=== PATIENT | male | born 1990 | race American Indian/Alaskan Native ===

== ENCOUNTER 2018-10-18 10:44 | Emergency (ER) | payer OTHER ==
[2018-10-18] MEDS ORDERED: Lidocaine 2% 20 ML MDV INJECT ONE (10:45)
[2018-10-18] MEDS ORDERED: Diphtheria,Pertussis(Acell),Tetanus Vaccine 0.5 ML SDV IM ONE (10:53)
[2018-10-18] MEDS ORDERED: cefTRIAXone 1 GM Vial IM STA (10:54)
--- NOTE | 2018-10-18 10:57 | EDM.PDOC ---
ED HPI GENERAL MEDICAL PROBLEM - General Chief Complaint: Upper Extremity Injury/Pain Stated Complaint: LEFT MIDDLE FINGER CUT Time Seen by Provider: 10/18/18 10:44 Source of Information: Reports: Patient History Limitations: Reports: No Limitations - History of Present Illness INITIAL COMMENTS - FREE TEXT/NARRATIVE: 28 years old w tessie came to the ed after he cut himself into his left middle finger with a supervisor mattress and boxsprings by accident. Wound was bleeding, not pulsating. No loss of function. No N/V/D or any other acute medical issues. BP 138/78 RR 18 Pulse ox 100% on RA, Temp 36.8 pulse 71 Onset Date: 10/18/18 Onset Time: 08:00 Duration: Hour(s): Location: Reports: Upper Extremity, Left (3rd finger ) Quality: Reports: Ache, Dull Severity: Mild Improves with: Reports: Rest Worsens with: Reports: Movement Context: Reports: Trauma Associated Symptoms: Reports: No Other Symptoms - Related Data Allergies Allergy/AdvReac Type Severity Reaction Status Date / Time No Known Allergies Allergy Verified 10/18/18 11:01 Home Meds: Home Meds Amoxicillin/Potassium Clav [Augmentin 875-125 Tablet] 1 each PO BID #20 tablet 10/18/18 [Rx] Review of Systems - Review of Systems Review Of Systems: See Below Constitutional: Reports: No Symptoms Eyes: Reports: No Symptoms Ears: Reports: No Symptoms Nose: Reports: No Symptoms Mouth/Throat: Reports: No Symptoms Respiratory: Reports: No Symptoms Cardiovascular: Reports: No Symptoms GI/Abdominal: Reports: No Symptoms Genitourinary: Reports: No Symptoms Musculoskeletal: Reports: No Symptoms Skin: Reports: Wound (left 3rd finger distal Phalanx) Neurological: Reports: No Symptoms Psychiatric: Reports: No Symptoms ED EXAM, GENERAL - Physical Exam Exam: See Below Exam Limited By: No Limitations General Appearance: Alert, WD/WN, Mild Distress Eye Exam: Bilateral Eye: Normal Inspection Ears: Normal External Exam Ear Exam: Bilateral Ear: Auricle Normal Nose: Normal Inspection, Normal Mucosa, No Blood Throat/Mouth: Normal Inspection, Normal Lips, Normal Teeth, Normal Gums, Normal Voice, No Airway Compromise Head: Atraumatic, Normocephalic Neck: Normal Inspection, Supple, Non-Tender, Full Range of Motion Respiratory/Chest: No Respiratory Distress, Lungs Clear, Normal Breath Sounds, No Accessory Muscle Use, Chest Non-Tender Cardiovascular: Normal Peripheral Pulses, Regular Rate, Rhythm, No Edema, No Gallop, No JVD, No Murmur, No Rub GI/Abdominal: Normal Bowel Sounds, Soft, Non-Tender, No Organomegaly, No Abnormal Bruit, No Mass, Pelvis Stable (Male) Exam: Deferred Rectal (Males) Exam: Deferred Back Exam: Normal Inspection, Full Range of Motion Extremities: Normal Inspection, Normal Range of Motion, Non-Tender, No Pedal Edema, Normal Capillary Refill Neurological: Alert, Oriented, CN II-XII Intact, Normal Cognition, Normal Gait Psychiatric: Normal Affect, Normal Mood Skin Exam: Warm, Dry, Normal Color, No Rash, Other (LAC left finger) Lymphatic: No Adenopathy ED TRAUMA EXTREMITY PROCEDURES - Laceration/Wound Repair Left Digit - 3rd (Middle) Lac/Wound Length In cm: 1.5 Appearance: Stellate, Clean Distal NVT: Neuro & Vascular Intact, No Tendon Injury Anesthetic Type: Local Local Anesthesia - Lidocaine (Xylocaine): 2% Plain Local Anesthetic Volume: 4cc Skin Prep: Chlorhexidine (Hibiciens) Saline Irrigation (cc's): 5 Exploration/Debridement/Repair: Wound Explored, In a Bloodless Field, Explored to Base Tetanus Status Addressed: Yes (updated today) Complications: No Course - Vital Signs Text/Narrative:: 28 years old w tessie came to the ed after he cut himself into his left middle finger with a supervisor mattress and boxsprings by accident. Wound was bleeding, not pulsating. No loss of function. No N/V/D or any other acute medical issues. BP 138/78 RR 18 Pulse ox 100% on RA, Temp 36.8 pulse 71\ PE: WNWD W M with a laceration left middle finger, no FB seen Procedure, please see not above Impression: Left middle finger Tx: TD, Rocephin, Wound repair Reexam: Improved Plan: D/C with instruction Last Recorded V/S: Last Vital Signs Temp 36.9 C 10/18/18 11:55 Pulse 67 10/18/18 11:55 Resp 18 10/18/18 11:55 BP 159/89 H 10/18/18 11:55 Pulse Ox 100 10/18/18 11:55 - Orders/Labs/Meds Orders: Active Orders 24 hr Category Date Time Status Vaccines to be Administered [RC] PER UNIT ROUTINE Care 10/18/18 10:53 Active Meds: Medications Discontinued Medications Generic Name Dose Route Start Last Admin Trade Name Ye WONG Reason Stop Dose Admin Ceftriaxone Sodium 1 gm 10/18/18 10:54 10/18/18 11:38 Rocephin IM 10/18/18 10:55 1 gm ONETIME STA Administration Diphtheria/Tetanus/Acell Pertussis 0.5 ml 10/18/18 10:53 10/18/18 11:39 Adacel IM 10/18/18 10:54 0.5 ml .ONCE ONE Administration Departure - Departure Time of Disposition: 11:28 Disposition: Home, Self-Care 01 Condition: Good Clinical Impression: Laceration - Discharge Information Prescriptions: Amoxicillin/Potassium Clav [Augmentin 875-125 Tablet] 1 each PO BID #20 tablet Referrals: PCP,None [Primary Care Provider] - Forms: ED Department Discharge Additional Instructions: Please apply Neosporine ointment to wound, Augmentin as recommended, wound check in 2 days, suture removal in 7-10 days. Motrin for pain. Please come back if your symptoms get worse acutely. - My Orders Last 24 Hours: My Active Orders 10/18/18 10:53 Vaccines to be Administered [RC] PER UNIT ROUTINE - Assessment/Plan Last 24 Hours: My Active Orders 10/18/18 10:53 Vaccines to be Administered [RC] PER UNIT ROUTINE
== END 2018-10-18 11:55 | disposition home or self-care (01) ==
LOC: FB.ED 10:44
DX: S61.213A Laceration without foreign body of left middle finger without damage to nail, initial encounter (principal); W26.0XXA Contact with knife, initial encounter; Z23 Encounter for immunization
CPT/HCPCS: 12001; 90471; 90715; 96372; 99282; J0696

== ENCOUNTER 2019-02-10 22:32 | Emergency (ER) | payer MEDICAID, OTHER ==
[2019-02-10] MEDS ORDERED: Albuterol 8 GM Inhaler INH ONE (22:33)
[2019-02-10] MEDS ORDERED: Albuterol/Ipratropium 3.0-0.5 MG/3 ML Neb Soln NEB ONE (22:42)
--- NOTE | 2019-02-10 22:47 | EDM.PDOC ---
ED HPI GENERAL MEDICAL PROBLEM - General Stated Complaint: SOB Time Seen by Provider: 02/10/19 22:32 Source of Information: Reports: Patient, Family History Limitations: Reports: No Limitations, Respiratory Distress (cough) - History of Present Illness INITIAL COMMENTS - FREE TEXT/NARRATIVE: 29 y.o.w.m in prev healthy condition, came to the ED with SOB and cough for a few days/weeks, which is getting worse. Pt took Benadryl, which helped him some. Does not smoke or drink. No C/P. No F/C, no N/V or any other acute med issues. BP 101/58 Pulse 111, Temp 36.6 RR 22 Pulse ox 95% on RA Onset: Unknown/Unsure Onset Date: 01/31/19 Onset Time: 10:00 Duration: Day(s):, Week(s):, Getting Worse, Intermittent Location: Reports: Chest Quality: Reports: Ache, Other (sob) Severity: Moderate Improves with: Reports: Medication Worsens with: Reports: Cold Therapy Context: Reports: Sick Contact (?) Associated Symptoms: Reports: Cough - Related Data Allergies Allergy/AdvReac Type Severity Reaction Status Date / Time animal dander Allergy Airway Verified 02/10/19 23:15 Tightness Home Meds: Home Meds Albuterol [Proventil HFA] 2 puff INH Q4H PRN #1 inhaler 02/10/19 [Rx] predniSONE [Prednisone] 20 mg PO DAILY #3 tab.ds.pk 02/10/19 [Rx] Social & Family History - Family History Family Medical History: Noncontributory - Caffeine Use Caffeine Use: Reports: Soda ED ROS GENERAL - Review of Systems Review Of Systems: See Below Constitutional: Reports: No Symptoms HEENT: Reports: No Symptoms Respiratory: Reports: Shortness of Breath, Cough Cardiovascular: Reports: No Symptoms Endocrine: Reports: No Symptoms GI/Abdominal: Reports: No Symptoms : Reports: No Symptoms Musculoskeletal: Reports: No Symptoms Skin: Reports: No Symptoms Neurological: Reports: No Symptoms Psychiatric: Reports: No Symptoms Hematologic/Lymphatic: Reports: No Symptoms Immunologic: Reports: No Symptoms ED EXAM, GENERAL - Physical Exam Exam: See Below Exam Limited By: No Limitations General Appearance: Alert, WD/WN, Moderate Distress Eye Exam: Bilateral Eye: Normal Inspection Ears: Normal External Exam Ear Exam: Bilateral Ear: Auricle Normal Nose: Normal Inspection, Normal Mucosa, No Blood Throat/Mouth: Normal Inspection, Normal Lips, Normal Voice, No Airway Compromise Head: Atraumatic, Normocephalic Neck: Normal Inspection, Supple, Non-Tender, Full Range of Motion Respiratory/Chest: Wheezing (expiratory) Cardiovascular: Normal Peripheral Pulses, Regular Rate, Rhythm, No Edema, No Gallop, No JVD GI/Abdominal: Normal Bowel Sounds, Soft, Non-Tender, No Organomegaly, Pelvis Stable (Male) Exam: Deferred Rectal (Males) Exam: Deferred Back Exam: Normal Inspection, Full Range of Motion Extremities: Normal Inspection, Normal Range of Motion, Non-Tender, No Pedal Edema Neurological: Alert, Oriented, CN II-XII Intact, Normal Cognition, Normal Gait Psychiatric: Normal Affect, Normal Mood Skin Exam: Warm, Dry, Intact, Normal Color, No Rash Lymphatic: No Adenopathy Course - Vital Signs Text/Narrative:: 29 y.o.w.m in prev healthy condition, came to the ED with SOB and cough for a few days/weeks, which is getting worse. Pt took Benadryl, which helped him some. Does not smoke or drink. No C/P. No F/C, no N/V or any other acute med issues. BP 101/58 Pulse 111, Temp 36.6 RR 22 Pulse ox 95% on RA PE: WNWD W M with exp wheezes Imaging: CXR: NAD, official report is pending Labs: CBC, BMP and Lactic acid were nl Impression: Asthma attack Tx: Duo neb, Prednison PO Reexam: Improved 90% Plan: D/C with instructions Last Recorded V/S: Last Vital Signs Temp 36.8 C 02/10/19 22:35 Pulse 110 H 02/10/19 22:35 Resp 22 H 02/10/19 22:35 BP 101/58 L 02/10/19 22:35 Pulse Ox 95 02/10/19 22:35 - Orders/Labs/Meds Orders: Active Orders 24 hr Category Date Time Status RT Aerosol Therapy [RC] ASDIRECTED Care 02/10/19 22:43 Active Chest 2V [CR] Stat Exams 02/10/19 22:43 Taken Labs: Laboratory Tests 02/10/19 02/10/19 02/10/19 Range/Units 22:55 22:55 22:55 WBC 5.9 (4.5-12.0) X10-3/uL RBC 5.06 (4.30-5.75) x10(6)uL Hgb 14.8 (13.5-17.8) g/dL Hct 43.1 (30.0-51.3) % MCV 85.1 (80-96) fL MCH 29.3 (27.7-33.6) pg MCHC 34.5 (32.2-35.4) g/dL RDW 11.0 L (11.5-15.5) % Plt Count 264 (125-369) X10(3)uL MPV 8.3 (7.4-10.4) fL Add Manual Diff Yes Neutrophils % (Manual) 59 (46-82) % Band Neutrophils % 1 (0-6) % Lymphocytes % (Manual) 31 (13-37) % Monocytes % (Manual) 5 (4-12) % Eosinophils % (Manual) 4 (0-5) % Sodium 143 (135-145) mmol/L Potassium 3.9 (3.5-5.3) mmol/L Chloride 105 (100-110) mmol/L Carbon Dioxide 28 (21-32) mmol/L BUN 14 (7-18) mg/dL Creatinine 1.0 (0.70-1.30) mg/dL Est Cr Clr Drug Dosing TNP Estimated GFR (MDRD) > 60 (>60) BUN/Creatinine Ratio 14.0 (9-20) Glucose 141 H (80-116) mg/dL Lactic Acid 1.5 (0.4-2.2) mmol/L Calcium 9.0 (8.6-10.2) mg/dL Meds: Medications Discontinued Medications Generic Name Dose Route Start Last Admin Trade Name Freq PRN Reason Stop Dose Admin Albuterol/Ipratropium 3 ml 02/10/19 22:42 02/10/19 22:49 Duoneb 3.0-0.5 Mg/3 Ml NEB 02/10/19 22:43 3 ml ONETIME ONE Administration Prednisone 20 mg 02/10/19 23:35 02/10/19 23:38 Prednisone PO 02/10/19 23:36 20 mg ONETIME ONE Administration Departure - Departure Time of Disposition: 23:28 Disposition: Home, Self-Care 01 Condition: Good Clinical Impression: Asthma - Discharge Information Prescriptions: Albuterol [Proventil HFA] 2 puff INH Q4H PRN #1 inhaler PRN Reason: sob, cough predniSONE [Prednisone] 20 mg PO DAILY #3 tab.ds.pk Referrals: PCP,Not In Area [Primary Care Provider] - Forms: ED Department Discharge Additional Instructions: Please use -2 puffs albuterol inhalers every 4 hours for shortness of breath and cough. Please use prednisone for 3 days which will increase the efficiency of the Albuterol inhaler. Please f/u, come back if your symptoms get worse acutely - My Orders Last 24 Hours: My Active Orders 02/10/19 22:43 RT Aerosol Therapy [RC] ASDIRECTED Chest 2V [CR] Stat - Assessment/Plan Last 24 Hours: My Active Orders 02/10/19 22:43 RT Aerosol Therapy [RC] ASDIRECTED Chest 2V [CR] Stat
[2019-02-10] MEDS ORDERED: predniSONE 20 MG Tab PO ONE (23:35)
--- NOTE | 2019-02-12 12:10 | CR ---
INDICATION: Cough, shortness of breath. CHEST: PA and lateral views of the chest were obtained and revealed the heart, mediastinum, and bony thorax to be unremarkable. No consolidating pneumonia or effusion was seen. However, there is bronchial wall cuffing in the lower lung pritchett - lung bases, which could represent active peribronchial disease and should be correlated clinically. IMPRESSION: Mild bronchial wall cuffing - correlate clinically. No other finding to suggest acute process. MTDD
== END 2019-02-10 23:40 | disposition home or self-care (01) ==
LOC: FB.ED 22:32
DX: J45.901 Unspecified asthma with (acute) exacerbation (principal)
CPT/HCPCS: 36415; 71046; 80048; 83605; 85025; 94640; 99285-25; A9270-GY; J7620-GY